=== PATIENT | female | born 1975 | race Caucasian/White ===

== ENCOUNTER 2017-08-03 12:04 | Day surgery (SDC) | payer OTHER ==
[~2017-08-03] VITALS: Ht 162.6 cm; Wt 52.2 kg
[~2017-08-03 12:04] MED LIST: HYDR1TAB94 PO
== END 2017-08-03 22:46 | disposition home or self-care (01) ==
LOC: ORSCMMR 12:04 → ORD 13:30 → ORSCSDS 13:30 → ORSCMMR 22:46
PROVIDERS: Podiatrist Foot & Ankle Surgery
PROC: 0QSK04Z Reposition Left Fibula with Internal Fixation Device, Open Approach (ICD-10-PCS; principal; 2017-08-03 13:30)
PROC: 0QSH04Z Reposition Left Tibia with Internal Fixation Device, Open Approach (ICD-10-PCS; principal; 2017-08-03 13:30)
DX: S82.842A Displaced bimalleolar fracture of left lower leg, initial encounter for closed fracture (principal)
CPT/HCPCS: C1713; C1769; J0171; J0690; J1885; J2250; J3010; J7120